=== PATIENT | male | born 1945 | race Native Hawaiian/Other Pacific Islander ===

== ENCOUNTER → 2019-11-10 | Outpatient (CLI) | payer MEDICARE, OTHER ==
--- NOTE | 2019-11-10 15:55 | US ---
EXAMINATION TYPE: US venous doppler duplex LE LT DATE OF EXAM: 11/10/2019 3:28 PM COMPARISON: NONE CLINICAL HISTORY: M25.562 PAIN LT KNEE,M79.662 PAIN LT LOWER LEG. Patient was pushing a car when he h eard and felt a snap in his left calf, no h/o dvt SIDE PERFORMED: Left TECHNIQUE: The lower extremity deep venous system is examined utilizing real time linear array sonog marge with graded compression, doppler sonography and color-flow sonography. VESSELS IMAGED: External Iliac Vein (EIV) Common Femoral Vein Deep Femoral Vein Greater Saphenous Vein * Femoral Vein Popliteal Vein Small Saphenous Vein * Proximal Calf Veins (* superficial vessels) Left Leg: Appears negative for DVT, fluid collection measuring 2.6 cm seen within left calf at are a of pain and where "snap" noise was heard. This appears intramuscular. *tech impression to office @3:40 IMPRESSION: 1. No sonographic evidence of deep venous arthrosis within the left lower extremity. 2. Fluid collection appears intramuscular measuring approximately 2.6 cm. This could relate to an int ramuscular hematoma or edema from partial tear.
== END | disposition home or self-care (01) ==
LOC: RADUSWWP 14:59
PROVIDERS: ATTEND Orthopaedic Surgery
DX: M25.462 Effusion, left knee (principal); M17.12 Unilateral primary osteoarthritis, left knee; M79.662 Pain in left lower leg

== ENCOUNTER 2025-02-02 09:42 | Emergency (ER) | payer MEDICARE ==
--- NOTE | 2025-02-02 10:16 | ED ---
Extremity Problem HPI - General Chief complaint: Extremity Problem,Nontraumatic Stated complaint: left knee pain Time Seen by Provider: 02/02/25 10:15 Source: patient, RN notes reviewed Mode of arrival: ambulatory Limitations: no limitations - History of Present Illness Initial comments: 79-year-old male presented the ER for evaluation of left knee pain. Patient states yesterday he was attempting to enter his van and placed his right foot onto the side of the van when lifting his left leg off of the ground he felt a sharp pain in his left knee. He states since then he has been experiencing a sharp deep pain to his left knee. He states that is difficult to ambulate given the pain and he has to limp. He denies any paresthesias. No prior issues with his knee. He has not taken anything for pain at this time. Patient is reporting most of his discomfort over the lateral aspect of his left knee. No other complaints. - Related Data Allergies Allergy/AdvReac Type Severity Reaction Status Date / Time No Known Allergies Allergy Verified 02/02/25 10:06 Review of Systems ROS Statement: Those systems with pertinent positive or pertinent negative responses have been documented in the HPI. ROS Other: All systems not noted in ROS Statement are negative. Past Medical History Past Medical History: Hypertension Additional Past Medical History / Comment(s): Gout Past Surgical History: No Surgical Hx Reported Smoking Status: Never smoker Past Alcohol Use History: None Reported Past Drug Use History: None Reported General Exam Limitations: no limitations General appearance: alert, in no apparent distress Respiratory exam: Present: normal lung sounds bilaterally. Absent: respiratory distress, wheezes, rales, rhonchi, stridor Cardiovascular Exam: Present: regular rate, normal rhythm, normal heart sounds. Absent: systolic murmur, diastolic murmur, rubs, gallop, clicks Extremities exam: Present: normal inspection, full ROM, tenderness (lateral left knee joint line. No edema. Extensor mechanism intact. No overlying skin changes.), normal capillary refill (2+ bilateral DP/PT pulses) Neurological exam: Present: alert, oriented X3, CN II-XII intact Skin exam: Present: warm, dry, intact, normal color. Absent: rash Course Vital Signs 02/02/25 02/02/25 09:46 11:13 Temperature 98.3 F 98.1 F Pulse Rate 82 80 Respiratory 17 16 Rate Blood Pressure 153/80 150/80 O2 Sat by Pulse 96 97 Oximetry Medical Decision Making - Medical Decision Making Was pt. sent in by a medical professional or institution (HERMINIO Valdez, MANUSCRIPT EDITOR, urgent care, hospital, or alf...) When possible be specific @ -No Did you speak to anyone other than the patient for history (EMS, parent, family, police, friend...)? What history was obtained from this source @ -No Did you review nursing and triage notes (agree or disagree)? Why? @ -I reviewed and agree with nursing and triage notes Were old charts reviewed (outside hosp., previous admission, EMS record, old EKG , old radiological studies, urgent care reports/EKG's, alf records)? Report findings @ -No old charts were reviewed Differential Diagnosis (chest pain, altered mental status, abdominal pain women, abdominal pain men, vaginal bleeding, weakness, fever, dyspnea, syncope, headache, dizziness, GI bleed, back pain, seizure, CVA, palpatations, mental health, musculoskeletal)? @- Differential Musculoskeletal: Muscular strain, contusion, ligament sprain, fracture, arthritis, septic arthritis, bursitis, cellulitis, muscle spasm, nerve compression, DVT, arterial occlusion, herpes zoster, electrolyte abnormality, tumor.... This is not meant to be in all inclusive list EKG interpreted by me (3pts min.). @ -None done X-rays interpreted by me (1pt min.). @ -Left knee x-ray interpreted me negative for acute fractures or dislocations. Calcification of the lateral meniscus CT interpreted by me (1pt min.). @ -None done U/S interpreted by me (1pt. min.). @ -None done What testing was considered but not performed or refused? (CT, X-rays, U/S, labs)? Why? @ -None What meds were considered but not given or refused? Why? @ -None Did you discuss the management of the patient with other professionals (professionals i.e. HERMINIO Valdez, MANUSCRIPT EDITOR, lab, RT, psych nurse, plugger worker, sprue knocker, teacher, founder and chief executive officer, caser in)? Give summary @ -No Was smoking cessation discussed for >3mins.? @ -No Was critical care preformed (if so, how long)? @ -No Were there social determinants of health that impacted care today? How? (Homelessness, low income, unemployed, alcoholism, drug addiction, tra nsportation, low edu. Level, literacy, decrease access to med. care, prison, rehab)? @ -No Was there de-escalation of care discussed even if they declined (Discuss DNR or withdrawal of care, Hospice)? DNR status @ -No What co-morbidities impacted this encounter? (DM, HTN, Smoking, COPD, CAD, Cancer, CVA, ARF, Chemo, Hep., AIDS, mental health diagnosis, sleep apnea, morbid obesity)? @ -None Was patient admitted / discharged? Hospital course, mention meds given and route, prescriptions, significant lab abnormalities, going to OR and other pertinent info. @ -Discharge. 79-year-old male presented the ER for evaluation of left knee pain. Upon rooming history and physical exam completed. Vitals within acceptable limits. Patient is neurovastly intact. There is focal tenderness to the left knee lateral joint line. Extensor mechanism intact. X-rays completed showing no acute fractures or dislocations. There is calcification noted of the lateral meniscus and osteoarthritis. This may be contributing to presenting symptoms. Symptomatic control in the ER. Patient will be discharged in stable condition with follow-up to orthopedics, referral given. Conservative treatment options discussed. Return parameters discussed. Patient verbally expressed understanding and agreement with care plan. Case discussed with ED attending, Dr. Hodges. Undiagnosed new problem with uncertain prognosis? @ -No Drug Therapy requiring intensive monitoring for toxicity (Heparin, Nitro, Insulin, Cardizem)? @ -No Were any procedures done? @ -No Diagnosis/symptom? @ -Knee pain/osteoarthritis Acute, or Chronic, or Acute on Chronic? @ -Acute Uncomplicated (without systemic symptoms) or Complicated (systemic symptoms)? @ -Uncomplicated Side effects of treatment? @ -No Exacerbation, Progression, or Severe Exacerbation? @ -No Poses a threat to life or bodily function? How? (Chest pain, [place], [place], pneumonia, PE, COPD, DKA, ARF, appy, cholecystitis, CVA, Diverticulitis, Homicidal, Suicidal, threat to staff... and all critical care pts) @ -No - Radiology Data Radiology results: report reviewed, image reviewed Disposition Clinical Impression: Osteoarthritis of left knee, Knee pain Disposition: HOME SELF-CARE Condition: Stable Instructions (If sedation given, give patient instructions): Osteoarthritis (DC) Additional Instructions: I recommend [id number] ibuprofen and Tylenol for pain control. Follow-up with orthopedics if symptoms persist. Return to the ER for any new or worsening concerns. Is patient prescribed a controlled substance at d/c from ED?: No Referrals: Jane Renner MD [Primary Care Provider] - 1-2 days Garrick Reed MD [STAFF PHYSICIAN] - 1-2 days Time of Disposition: 10:55
--- NOTE | 2025-02-02 10:31 | XR ---
EXAMINATION TYPE: XR knee complete LT DATE OF EXAM: 02/02/2025 10:24 AM COMPARISON: 11/20/2014 CLINICAL INDICATION: Male, 79 years old with history of pain; PHH, pain TECHNIQUE: XR knee complete LT 3 views submitted. FINDINGS: No evidence of any acute osseous pathology, soft tissue swelling, or joint effusion is no olamide. Tricompartmental osteophyte formation involving the femoral condyles, tibial plateau and patella . Mild joint space narrowing. Chondrocalcinosis of the menisci. IMPRESSION: 1. No acute osseous pathology. 2. Mild tricompartmental osteoarthritic changes. [facility], , 02/02/2025 10:29 AM
[2025-02-02] MEDS: IBUPROFEN 600 MG TAB PO STA (11:06)
[2025-02-02 11:16] VITALS: BP 150/80; PULSE 80; RESP 16; TEMP 98.1
== END 2025-02-02 11:16 | disposition home or self-care (01) ==
LOC: EC 09:42
DX: M17.12 Unilateral primary osteoarthritis, left knee (principal)
CPT/HCPCS: 99283